=== PATIENT | female | born 1985 | race Two or more races ===

== ENCOUNTER → 2024-08-14 | Outpatient (CLI) | payer BC, SELFPAY ==
--- NOTE | 2024-08-14 13:30 | XR_ITS ---
Examination: OB Transvaginal ultrasound of the pelvis, complete Technique: Transvaginal sonographic images pelvis performed using payan scale imaging Exam date and time: August 14, 2024 1406 hours INDICATIONS: Encounter for supervision of normal FINDINGS: Uterus 11.8 x 7.4 x 9.4 cm pole 7.1 cm corresponds to 13 weeks 2 days gestational age Cardiac motion 150 BPM Right ovary 2.6 x 1.6 x 2.0 cm arterial flow Left ovary 5.2 x 4.1 x 3.6 cm arterial flow 3.6 x 3.5 cm septated cyst No fluid in the cul-de-sac IMPRESSION: Viable intrauterine gestation 13 weeks 2 days.
== END | disposition home or self-care (01) ==
LOC: CDIM 13:35
PROVIDERS: PCP Nurse Practitioner Family; Referring Provider Pharmacist; Visit Provider Pharmacist
DX: Z34.90 Encounter for supervision of normal pregnancy, unspecified, unspecified trimester (principal)
CPT/HCPCS: 76817

== ENCOUNTER 2024-12-23 03:20 | Inpatient (IN) | payer MEDICAID, SELFPAY ==
[2024-12-23] VITALS (47 sets, daily range): BP systolic 104–121; BP diastolic 56–80; PULSE 66–121; RESP 16–99; TEMP 36.6–37.4; O2SAT 88–100; BMI 34.2
[2024-12-23 03:52] LABS: ROM Kit Lot # 57807112; ROM Swab Mixed By: RAWLT; Swb Mxed in Solvent 1 min? Yes
[2024-12-23 03:53] LABS: Rupture of Fetal Membranes Positive (Negative)
--- NOTE | 2024-12-23 03:59 | XR_ITS ---
Examination: Complete OB ultrasound greater than 14 weeks Date and time of exam: December 23, 2024 0439 hours INDICATIONS: Pelvic contractions and pain beginning yesterday Findings: Viable intrauterine single fetus with single amniotic sac presentation cephalic Cardiac motion 132 bpm Placenta anterior grade 2 Umbilical cord insertion seen Cervix 3.0 cm Ovaries are obscured by bowel gas. Composite estimated gestational age based on BPD, head circumference, abdominal circumference, femur length is 31 weeks 6 days Estimated weight 1760.2 g. Survey of intracranial anatomy, spinal anatomy, abdominal anatomy, four-chamber heart performed with no abnormalities identified. Impression: Viable intrauterine gestation cephalic presentation Estimated gestational age 31 weeks 6 days Estimated weight 1760.2 g.
[2024-12-23] MEDS: BETAMET ACET/BETAMET NA PH (Celestone) 6 MG/ML VIAL 12 MG IM (04:14)
[2024-12-23] MEDS: RINGERS LACTATED 1000 ML 1,000 ML 999 ML IV (04:17)
[2024-12-23] MEDS: Ampicillin Inj 2,000 MG in SODIUM CHLORIDE 0.9% (POP) 100 ML 200 MG IV (04:29)
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
[2024-12-23] MEDS: TERBUTALINE SULF INJ 1 MG/ML VIAL 0.25 MG SC (04:38)
[2024-12-23 04:43] LABS: Basophils % (Auto) 0 % (0-2.5); Eosinophils % (Auto) 0 % (0-10); Hematocrit 33.8 % (36.0-46.0); Hemoglobin 11.7 g/dL (12.0-16.0); Immature Granulocytes % (Auto) 2 % (0-0); Immature Granulocytes Auto 0.15 Thou/mm3 (0.00-0.00); Lymphocytes # (Auto) 1.4 Thou/mm3 (1.0-4.8); Lymphocytes % (Auto) 14 % (10-50); Mean Corpuscular HGB Conc 34.6 g/dl (31.0-37.0); Mean Corpuscular Volume 89 fL (80-100); Monocytes # (Auto) 0.7 Thou/mm3 (0.0-0.8); Monocytes % (Auto) 7 % (0-12); Neutrophils # (Auto) 7.5 Thou/mm3 (1.8-7.7); Neutrophils % (Auto) 77 % (37-80); Nucleated Red Blood Cell % 0 /100 WBC (0); Platelet Count 304 Thou/mm3 (140-440); RDW Standard Deviation 40.5 fL (36.4-46.3); Red Blood Count 3.78 Miln/mm3 (4.00-5.20); White Blood Count 9.7 Thou/mm3 (3.6-11.0)
[2024-12-23] MEDS: AZITHROMYCIN 250 MG TABLET 1000 MG PO (04:47)
[2024-12-23] MEDS: RINGERS LACTATED 1000 ML 1,000 ML 100 ML IV (04:54)
[2024-12-23 05:02] LABS: Amphetamine/Metham Scrn,Ur OB Negative (Negative); Benzoylecgonine Screen, Ur OB Negative (Negative); Opiate Screen,Urine OB Negative (Negative); THC Screen,Urine OB Negative (Negative)
[2024-12-23 05:24] LABS: Syphilis Nonreactive (Nonreactive)
--- NOTE | 2024-12-23 05:45 | PRELIM_ITS ---
Obstetric ultrasound with Doppler. December 23, 2024 at 0434 hours Clinical history: Confirm dates. Comparison: None. Findings: The sonographic or CT is not available at the time of this report. There is a gravid uterus with a live fetus of mean gestational age 31 weeks and 6 days (by biometry). cardiac activity is present at a heart rate of 158 beats per minute. The placenta is anterior in location. There is no evidence of placenta previa or retroplacental hemorrhage. Amniotic fluid is qualitatively adequate. Estimated weight is 1760 grams+/- 261 grams. The cervix measures 3.0 cm, close. No abnormalities detected by Doppler. Impression: Gravid uterus with a single live fetus of mean gestational age 31 weeks 6 days. Report Electronically Signed By: Jason Mahmood 12/23/2024 5:44:21 AM [EST]
[2024-12-23] MEDS: OXYTOCIN in NS 20 units 20 UNIT/1,000 ML BAG 125 UNIT IV (06:27)
[2024-12-23] MEDS: BENZO/LANO/ALOE (Dermoplast) 60 GM CAN 1 SPRAY TOP (06:30)
[2024-12-23] MEDS: LIDOCAINE HCL 1% 20 ML VIAL INFL (06:31)
[2024-12-23] MEDS: METHYLERGONOVINE INJ 0.2 MG/ML VIAL IM (06:53)
--- NOTE | 2024-12-23 07:00 | PD.LDDELS ---
Data ([facility]) Data Hx Section: No Delivery Data ([facility]) EBL Estimated blood loss (ml): 200 Additional Procedures Sujatha is a 39yo [id number] s/p uncomplicated at 32&1wk after presenting with PPROM and then experiencing rapid cervical change from 1cm to 3-4cm over 1hr and then delivery approximately an hour after that. She progressed to C/C/0 at which point she began pushing. She declined epidural. With good maternal pushing efforts, 's head delivered OA and restituted ABDON. Left anterior shoulder delivered easily followed by posterior shoulder and corpus. had spontaneous cry and was vigorous. Apgars 8/9. Infant placed on maternal abdomen where nose/mouth were suctioned and dried/stimulated by the attendant NICU nurse. After approximately 1 minute, cord was clamped x2 and cut by FOB. Infant taken to warmer. Cord blood collected for typing. With fundal massage and cord traction, placenta delivered spontaneously and intact with 3 vessel centrally inserted cord. Bimanual massage performed and IV pitocin given per protocol with fundus then firm at u-2cm and hemostasis noted. Inspection of perineum and vagina revealed left labial laceration and a 1st degree midline perineal laceration which were repaired in routine fashion with 3-0 vicryl after anesthetizing with 1% lidocaine- total reapproximation and hemostasis achieved. Small trickle of blood, so sweep just within cervix/MARTELL performed which retrieved a small amount of clot. 0.2mg IM methergine given with observed hemostasis after. All counts correct x2. was taken to NICU. Mom was doing well when I left the room. Placenta/cord sent to pathology. Candace Bass MD Complications Complications: none
[2024-12-23 07:28] LABS: HIV (1&2) Antibody Rapid Non-Reactive
[2024-12-23] MEDS: IBUPROFEN TAB 400 MG TABLET 800 MG PO (07:46)
[2024-12-23 11:02] LABS: Chlamydia trachomatis PCR Negative (Not Detect); Neisseria Gonorrhoeae DNA PCR Negative (Not Detect); Trichomonas Negative (Negative)
[2024-12-23] MEDS: DOCUSATE SOD 100 MG CAPSULE PO (12:22)
[2024-12-23] MEDS: PRENATAL VITAMIN/FE FUM/FA TABLET 1 TAB PO (12:22)
[2024-12-23 13:59] LABS: Basophils % (Auto) 0 % (0-2.5); Eosinophils % (Auto) 0 % (0-10); Hematocrit 29.3 % (36.0-46.0); Immature Granulocytes % (Auto) 1 % (0-0); Immature Granulocytes Auto 0.12 Thou/mm3 (0.00-0.00); Lymphocytes # (Auto) 0.4 Thou/mm3 (1.0-4.8); Lymphocytes % (Auto) 3 % (10-50); Mean Corpuscular HGB Conc 34.1 g/dl (31.0-37.0); Mean Corpuscular Hemoglobin 30.9 pg (25.0-35.0); Mean Corpuscular Volume 90 fL (80-100); Monocytes # (Auto) 0.1 Thou/mm3 (0.0-0.8); Monocytes % (Auto) 1 % (0-12); Neutrophils # (Auto) 13.1 Thou/mm3 (1.8-7.7); Neutrophils % (Auto) 95 % (37-80); Nucleated Red Blood Cell % 0 /100 WBC (0); Platelet Count 258 Thou/mm3 (140-440); RDW Standard Deviation 41.1 fL (36.4-46.3); Red Blood Count 3.24 Miln/mm3 (4.00-5.20); White Blood Count 13.8 Thou/mm3 (3.6-11.0)
--- NOTE | 2024-12-23 14:58 | OBDSUM_ITS ---
Data ([facility]) Data Hx Section: No : 1 Para: 0 Term: 0 : 0 : 0 Delivery Data ([facility]) Labor Data ROM Date: 12/23/24 ROM Time: 02:50 Rupture Type: SROM Amniotic Fluid: Clear Delivery Data Labor Onset Stage 1 Date: 12/23/24 Labor Onset Stage 1 Time: 04:21 Labor Onset Stage 2 Date: 12/23/24 Labor Onset Stage 2 Time: 06:14 Delivery Date: 12/23/24 Delivery Time: 06:21 Placenta Delivery Date: 12/23/24 Placenta Delivery Time: 06:27 Delivered by: Candace Bass Delivery nurse: Lisa Mckinney Other staff at delivery: 2nd Nurse Other staff at delivery: Mary Multani Delivery Method Delivery: Vaginal Delivery Type: Spontaneous Presentation: Vertex Position: OA Anesthesia Type Primary Anesthesia: Local Placenta Cord Sample: Cord Blood Obtained EBL Estimated blood loss (ml): 200 Umbilical Cord Umbilical Vessels: 3 Nuchal Cord: None Body Cord: None Additional Procedures Sujatha is a 39yo [id number] s/p uncomplicated at 32&1wk after presenting with PPROM and then experiencing rapid cervical change from 1cm to 3-4cm over 1hr and then delivery approximately an hour after that. She progressed to C/C/0 at which point she began pushing. She declined epidural. With good maternal pushing efforts, infant's head delivered OA and restituted ABDON. Left anterior shoulder delivered easily followed by posterior shoulder and corpus. had spontaneous cry and was vigorous. Apgars 8/9. placed on maternal abdomen where nose/mouth were suctioned and dried/stimulated by the attendant NICU nurse. After approximately 1 minute, cord was clamped x2 and cut by FOB. Infant taken to warmer. Cord blood collected for typing. With fundal massage and cord traction, placenta delivered spontaneously and intact with 3 vessel centrally inserted cord. Bimanual massage performed and IV pitocin given per protocol with fundus then firm at u-2cm and hemostasis noted. Inspection of perineum and vagina revealed left labial laceration and a 1st degree midline perineal laceration which were repaired in routine fashion with 3-0 vicryl after anesthetizing with 1% lidocaine- total reapproximation and hemostasis achieved. Small trickle of blood, so sweep just within cervix/MARTELL performed which retrieved a small amount of clot. 0.2mg IM methergine given with observed hemostasis after. All counts correct x2. Infant was taken to NICU. Mom was doing well when I left the room. Placenta/cord sent to pathology. Complications Complications: none [place] Data ([facility]) [place] Data Infant Gender: Male Identification Band Number: [id number] Infant Weight Grams: 1895 1 Minute Total: 8 5 Minute Total: 9
--- NOTE | 2024-12-23 15:07 | PD.LDDS ---
DS: Providers Provider Date of admission: 12/23/24 05:53 Primary care physician: Physician No Primary/Family Admitting Provider: Candace Bass MD Attending Provider on Admission: Candace Bass MD Consults: 12/23/24 06:58 Referral Routine Comment: Attending Provider on DC: Candace Bass MD Discharging Provider: Candace Bass MD DS: Diagnosis Discharge Diagnosis (1) delivery, delivered: Status: Acute (2) premature rupture of membranes (PPROM) with onset of labor within 24 hours of rupture in third trimester, antepartum: Status: Acute (3) AMA (advanced maternal age) multigravida 35+: Status: Acute Problem List Completed Was Problem List Reviewed/Reconciled?: Yes Summary/Hosp Course Brief History: Sujatha is a 39yo [id number] s/p uncomplicated at 32&1wk after presenting with PPROM and then experiencing rapid pre-term labor, delivering at 0621 on 12/23/24. She has had an uneventful day. She is meeting all milestones and would like discharge at this time since baby is being transferred to higher level NICU facility. She is ambulating without lightheadedness, tolerating regular diet no n/v, spontaneously voiding without issue. Normal lochia. She has no chest pain or shortness of breath. No fevers or chills. Minimal, appropriate discomfort. Vitals normal, benign exam. Hemodynamically stable with no evidence of infection. PP Hgb 10 from 11.7. Status at Discharge Functional status at discharge: independent ambulation Overall status at discharge: patient is back to baseline Time Spent with Patient Time attestation: Total time spent providing and/or coordinating discharge services: Exam Vital Signs Temp Pulse Resp BP Pulse Ox O2 Del Method 97.9 F 82 18 107/73 99 Room Air 12/23/24 12:28 12/23/24 12:28 12/23/24 12:28 12/23/24 12:28 12/23/24 12:28 12/23/24 12:28 Narrative Exam General: well developed, well nourished, no acute distress, conversant Cardiac: normal heart rate Lungs: breathing without distress Abdomen: soft, post-gravid, non-tender, no rebound or guarding, Fundus firm at u-3cm. Extremities: no edema of BLE Discharge Plan Plan Patient Disposition: HOME (Self Care) Patient condition on transfer: Stable Prescriptions/Referrals Prescriptions/Med Rec: New docusate sodium 100 mg Capsule 100 mg PO BID 10 Days Qty: 20 0RF ibuprofen 800 mg tablet 800 mg PO Q8H PRN (Reason: See Comments) 10 Days Qty: 20 0RF Continued Vitamin 27 mg iron- 800 mcg tablet 1 tab PO QDAY Referrals: No Primary/Family,Physician [Primary Care Provider] - Patient/Caregiver Discharge Instructions Discharge Activity: activity as tolerated and other Other Discharge Activity Instructions:: vaginal rest and no heavy lifting more than 10 pounds for 6 weeks. Other Discharge Diet Instructions: regular diet Education Materials: After a Vaginal , Prematurity Print Language: Hungarian Activity Restrictions/Additional Instructions: follow up with obgyn in 2 to 4 weeks, call clinic for appointment Stand Alone Forms: [facility] Award Info., Patient Portal Info Letter Discharge Order Discharge Orders: Discharge (Routine); Ordered 12/23/24 Ordered By: Candace Bass Planned Discharge Date 12/23/24 (3) AMA (advanced maternal age) multigravida 35+ Qualifiers: Trimester: third trimester Qualified Code(s): O09.523 - Supervision of elderly multigravida, third trimester
[2024-12-23 21:04] LABS: Hepatitis B Surface Antigen Non Reactive (Non React); Rubella, IgG Antibody Reactive (Immune)
== END 2024-12-23 18:30 | disposition home or self-care (01) | DRG 560 ==
LOC: S4NX 12-24 06:18 → S4SX 12-24 06:18
PROVIDERS: Admitting Provider Obstetrics & Gynecology; Visit Provider Obstetrics & Gynecology
DX: O42.013 Preterm premature rupture of membranes, onset of labor within 24 hours of rupture, third trimester (principal); Z3A.32 32 weeks gestation of pregnancy; Z37.0 Single live birth; O70.0 First degree perineal laceration during delivery; O60.14X0 Preterm labor third trimester with preterm delivery third trimester, not applicable or unspecified
CPT/HCPCS: 36415; 76805; 80307; 84112; 85025; 86703; 86762; 86780; 86850; 86900; 86901; 87081; 87340; 87491; 87591; 87661; J0290; J0702; J2210; J2590; J3105; J3490; J7120; A9270